=== PATIENT | female | born 1960 | race Caucasian/White ===

== ENCOUNTER 2016-08-10 19:38 | Observation (INO) | payer OTHER ==
[~2016-08-10] VITALS: Ht 162.6 cm; Wt 66.4 kg
[~2016-08-10 19:38] MED LIST: ALTACE10 M1 PO; ALTACE10 MG PO; ALTACE5 M1 PO; AMOXICILLIN/CL875 MG OR; AUGMENTIN500TAB PO; AUGMENTIN875TAB OR; BAYER ASPIRIN E81 MG PO; BENZONATATE200 MG PO; CYCLOBENZAPR5 MG PO; FLEXERIL PO; FLEXERIL5 M1 PO; HYDROCHLOROT12.5 MG PO; HYDROCHLOROT25 MG PO; KEPPRA XR500 MG PO; LAMICTAL25 M2 PO; LIPITOR80 M1 PO; LORAZEPAM0.5 MG PO; LORTAB 5/3255 MG PO; MEDDOSEPAK PO; MET12.5TAB PO; METOPROL TAR25 M1 PO; NAPROSYN500 MG PO; NEXIUM20 MG OR; NEXIUM40 M1 PO; PERCOCET 5/325M1 TAB PO; PRILOSEC20 MG/CAP PO; TESSALON PER100 MG PO; TRIBENZO1; TYLENOL 500MG TAB PO; ULTRAM50 MG OR; VALTREX1 GM PO; ZOFRAN ODT4 MG PO; ZOVIRAX51 EX
[2016-08-10] MEDS ORDERED: REGLAN10 MG PO (20:09)
[2016-08-10] MEDS ORDERED: ATIVAN0.5 MG PO (20:12)
[2016-08-10 21:16] LABS: URINE BILIRUBIN - DIPSTICK NEGATIVE (NEGATIVE); URINE BLOOD DIPSTICK NEGATIVE (NEGATIVE); URINE COLOR YELLOW; URINE GLUCOSE - DIPSTICK NEGATIVE (NEGATIVE); URINE KETONE NEGATIVE (NEGATIVE); URINE NITRITE - DIPSTICK NEGATIVE (Negative); URINE PH 5.5 (4.5-8.0); URINE PROTEIN - DIPSTICK NEGATIVE (NEG-TRACE); URINE UROBILINOGEN - DIPSTICK 0.2 E.U./dL (0.2)
[2016-08-10 21:21] LABS: HEMATOCRIT 42.3 % (37.0-47.0); IMMATURE GRANULOCYTES 0.2 % (0.0-1.0); MEAN CELL VOLUME 93.4 fL CALC (80.0-100.0); MEAN CORPUSCULAR HGB 30.9 pG CALC (26.0-32.0); MEAN CORPUSCULAR HGB CONC 33.1 g/L CALC (32.0-36.0); NEUT# 4.12 thou/uL (2.00-7.15); RED BLOOD COUNT 4.53 mill/uL (4.20-5.60); RED CELL DISTRI WIDTH 13.2 % (11.5-15.5)
[2016-08-10 21:27] LABS: URINE CLARITY TURBID; URINE LEUK ESTERASE LARGE (NEGATIVE)
[2016-08-10 21:30] LABS: URINE BACTERIA FEW hpf; URINE SQUAMOUS EPITHELIAL CELL FEW EPI/hpf (0-FEW); URINE WBC 50-100 WBC/hpf (0-5)
[2016-08-10 21:32] LABS: BARBITURATES NEGATIVE (NEGATIVE); COCAINE NEGATIVE (NEGATIVE); METHADONE NEGATIVE (NEGATIVE); TETRAHYDROCANNABIONOL NEGATIVE (NEGATIVE); TRICYLIC ANTIDEPRESSANTS NEGATIVE (NEGATIVE)
[2016-08-10 21:33] LABS: OXCYCODONE NEGATIVE (NEGATIVE)
[2016-08-10 22:23] LABS: ACT PARTIAL THROMBO TIME 26.8 SECONDS (20.0-32.5); ALBUMIN 4.3 g/dL (3.2-5.0); ALKALINE PHOSPHATASE 93 u/l (38-126); AMYLASE 62 u/l (30-110); ANION GAP 17 (6-22 (CALC)); BILIRUBIN, TOTAL 0.4 mg/dL (0.0-1.4); BUN 10 mg/dL (7-17); BUN/CREATININE RATIO 13 (12-20 (CALC)); CALCIUM 9.6 mg/dL (8.4-10.2); CARBON DIOXIDE 24 mmol/l (22-30); CHLORIDE 104 mmol/l (95-108); CREATININE 0.8 mg/dL (0.5-1.0); GFR > 60 ML/MIN (>=60 (CALC)); GFR FOR AFR.AMER. > 60 ML/MIN (>=60 (CALC)); GLUCOSE 89 mg/dL (65-105); LIPASE 205 u/l (23-300); POTASSIUM 3.9 mmol/l (3.5-5.1); SGOT/AST 27 u/l (14-36); SGPT/ALT 37 u/l (9-52); SODIUM 141 mmol/l (137-146); TOTAL PROTEIN 7.2 g/dL (6.3-8.2)
[2016-08-10 22:34] LABS: MYOGLOBIN 25 ng/mL (0 - 62)
[2016-08-11 01:07] LABS: INFLUENZA A NONE DETECTED (NONE DETECT); INFLUENZA B NONE DETECTED (NONE DETECT)
[2016-08-11 03:30] VITALS: BP 135/87
[2016-08-11 04:27] VITALS: BP 135/78
[2016-08-11 07:26] VITALS: BP 119/69
[2016-08-11 11:04] VITALS: BP 139/84
[2016-08-11] MEDS ORDERED: ROBITUSSIN200 MG/10 PO (11:22)
[2016-08-11] MEDS ORDERED: AUGMENTIN875TAB PO (11:22)
== END 2016-08-11 12:00 | disposition home or self-care (01) | DRG 153 ==
LOC: ENPENDDIS → ED 19:38 → ED-I 08-11 00:30 → ED 08-11 02:52 → MS2 08-11 02:53
PROVIDERS: Emergency Medicine; ADMIT Internal Medicine; ATTEND Internal Medicine
DX: J02.0 Streptococcal pharyngitis (principal); I10 Essential (primary) hypertension; R07.89 Other chest pain; E78.5 Hyperlipidemia, unspecified; I25.10 Atherosclerotic heart disease of native coronary artery without angina pectoris; I25.2 Old myocardial infarction; Z95.5 Presence of coronary angioplasty implant and graft
CPT/HCPCS: G0378

== ENCOUNTER 2018-03-25 06:02 | Day surgery (SDC) | payer OTHER ==
[~2018-03-25] VITALS: Ht 162.6 cm; Wt 67.6 kg
[~2018-03-25 06:02] MED LIST changes: +ALEVE220 M1 PO; +ATIVAN0.5 MG PO; +AUGMENTIN875TAB PO; +REGLAN10 MG PO; +ROBITUSSIN200 MG/10 PO; +TIZANIDINE HCL4 M1 PO
[2018-03-25 11:46] VITALS: BP 125/56
== END 2018-03-25 08:04 | disposition home or self-care (01) | DRG 552 ==
LOC: ORM 06:02
PROVIDERS: ATTEND Anesthesiology Pain Medicine
PROC: 3E0T3BZ Introduction of Anesthetic Agent into Peripheral Nerves and Plexi, Percutaneous Approach (ICD-10-PCS; principal; 2018-03-25)
PROC: 3E0T33Z Introduction of Anti-inflammatory into Peripheral Nerves and Plexi, Percutaneous Approach (ICD-10-PCS; 2018-03-25)
PROC: 3E0T3BZ Introduction of Anesthetic Agent into Peripheral Nerves and Plexi, Percutaneous Approach (ICD-10-PCS; 2018-03-25)
PROC: 3E0T33Z Introduction of Anti-inflammatory into Peripheral Nerves and Plexi, Percutaneous Approach (ICD-10-PCS; 2018-03-25)
DX: M54.5 Low back pain (principal); M46.1 Sacroiliitis, not elsewhere classified; M47.817 Spondylosis without myelopathy or radiculopathy, lumbosacral region; M79.604 Pain in right leg

== ENCOUNTER 2018-04-22 06:46 | Day surgery (SDC) | payer OTHER ==
[~2018-04-22] VITALS: Ht 162.6 cm; Wt 67.6 kg
[~2018-04-22 06:46] MED LIST changes: +NEXIUM 24HR20 MG
[2018-04-22 08:29] VITALS: BP 137/76
== END 2018-04-22 08:45 | disposition home or self-care (01) | DRG 951 ==
LOC: ENDO 06:46
PROVIDERS: ATTEND Surgery
PROC: 0DJD8ZZ Inspection of Lower Intestinal Tract, Via Natural or Artificial Opening Endoscopic (ICD-10-PCS; principal; 2018-04-22)
DX: Z12.11 Encounter for screening for malignant neoplasm of colon (principal)

== ENCOUNTER 2018-05-13 07:30 | Day surgery (SDC) | payer OTHER ==
[2018-05-13 10:05] VITALS: BP 123/78
== END 2018-05-13 10:24 | disposition home or self-care (01) | DRG 552 ==
LOC: ORM 07:30
PROVIDERS: ATTEND Anesthesiology Pain Medicine
PROC: 3E0T3BZ Introduction of Anesthetic Agent into Peripheral Nerves and Plexi, Percutaneous Approach (ICD-10-PCS; principal; 2018-05-13)
PROC: 3E0T33Z Introduction of Anti-inflammatory into Peripheral Nerves and Plexi, Percutaneous Approach (ICD-10-PCS; 2018-05-13)
PROC: BR161ZZ Fluoroscopy of Lumbar Facet Joint(s) using Low Osmolar Contrast (ICD-10-PCS; 2018-05-13)
PROC: 3E0T3BZ Introduction of Anesthetic Agent into Peripheral Nerves and Plexi, Percutaneous Approach (ICD-10-PCS; 2018-05-13)
PROC: 3E0T3BZ Introduction of Anesthetic Agent into Peripheral Nerves and Plexi, Percutaneous Approach (ICD-10-PCS; 2018-05-13)
PROC: 3E0T33Z Introduction of Anti-inflammatory into Peripheral Nerves and Plexi, Percutaneous Approach (ICD-10-PCS; 2018-05-13)
PROC: 3E0T33Z Introduction of Anti-inflammatory into Peripheral Nerves and Plexi, Percutaneous Approach (ICD-10-PCS; 2018-05-13)
PROC: BR161ZZ Fluoroscopy of Lumbar Facet Joint(s) using Low Osmolar Contrast (ICD-10-PCS; 2018-05-13)
PROC: BR161ZZ Fluoroscopy of Lumbar Facet Joint(s) using Low Osmolar Contrast (ICD-10-PCS; 2018-05-13)
DX: M54.5 Low back pain (principal); M46.1 Sacroiliitis, not elsewhere classified

== ENCOUNTER → 2018-06-02 | Outpatient (REF) | payer OTHER ==
[2018-06-02 14:16] LABS: HEMOGLOBIN 13.4 g/dl (12.0-16.0); IMMATURE GRANULOCYTES 0.3 % (0.0-5.0); MEAN CELL VOLUME 95.6 fL CALC (80.0-100.0); MEAN CORPUSCULAR HGB 31.2 pG CALC (26.0-32.0); MEAN CORPUSCULAR HGB CONC 32.7 g/L CALC (32.0-36.0); NEUT# 3.32 thou/uL (2.00-7.15); RED BLOOD COUNT 4.29 mill/uL (4.20-5.60); RED CELL DISTRI WIDTH 13.8 % (11.5-15.5)
[2018-06-02 15:22] LABS: ALBUMIN 5.2 g/dL (3.2-5.0); ALKALINE PHOSPHATASE 99 u/l (38-126); ANION GAP 18 (6-22 (CALC)); BILIRUBIN, TOTAL 0.7 mg/dL (0.0-1.4); BUN 17 mg/dL (7-17); BUN/CREATININE RATIO 21 (12-20 (CALC)); CALCULATED LDLCHOLESTEROL 166 mg/dL (62-129 (CALC)); CARBON DIOXIDE 27 mmol/l (22-30); CHLORIDE 102 mmol/l (95-108); CHOLESTEROL HDL RATIO 3.3 (<4.4 (CALC)); CREATININE 0.8 mg/dL (0.5-1.0); GFR > 60 ML/MIN (>=60 (CALC)); GFR FOR AFR.AMER. > 60 ML/MIN (>=60 (CALC)); HDL CHOLESTEROL 82 mg/dL (>=40); POTASSIUM 4.4 mmol/l (3.5-5.1); SGOT/AST 35 u/l (14-36); SODIUM 142 mmol/l (137-146); TOTAL CHOLESTEROL 272 mg/dl (0-199); TOTAL PROTEIN 8.3 g/dL (6.3-8.2); TRIGLYCERIDES REFLEX TO dLDL 121 mg/dl (30-149); VLDL CHOLESTROL 24 mg/dl (2-49 (CALC))
[2018-06-02 15:52] LABS: TSH, 3RD GENERATION 0.17 uIU/mL (0.47 - 4.68)
== END | disposition home or self-care (01) | DRG 951 ==
LOC: LAB 13:56
PROVIDERS: ATTEND Family Medicine
DX: Z00.00 Encounter for general adult medical examination without abnormal findings (principal); I10 Essential (primary) hypertension

== ENCOUNTER 2018-06-03 07:34 | Day surgery (SDC) | payer OTHER ==
[~2018-06-03] VITALS: Ht 162.6 cm; Wt 67.1 kg
[2018-06-03 09:06] VITALS: BP 120/64
== END 2018-06-03 09:30 | disposition home or self-care (01) | DRG 552 ==
LOC: ORM 07:34
PROVIDERS: ATTEND Anesthesiology Pain Medicine
PROC: 015B3ZZ Destruction of Lumbar Nerve, Percutaneous Approach (ICD-10-PCS; principal; 2018-06-03)
DX: M54.5 Low back pain (principal); M47.816 Spondylosis without myelopathy or radiculopathy, lumbar region

== ENCOUNTER → 2018-06-10 | Outpatient (REF) ==
[2018-06-10 12:19] LABS: CHOLESTEROL HDL RATIO 3.5 (<4.4 (CALC))
== END | disposition home or self-care (01) | DRG 951 ==
LOC: LAB 10:27
PROVIDERS: ATTEND Family Medicine
DX: Z02.6 Encounter for examination for insurance purposes (principal)

== ENCOUNTER 2019-01-03 18:06 | Emergency (ER) | payer OTHER ==
[~2019-01-03] VITALS: Ht 162.6 cm; Wt 67.0 kg
[~2019-01-03 18:06] MED LIST changes: +TRAMADOL HCL50 MG PO
[2019-01-03] MEDS ORDERED: ROSUVASTATIN CA10 MG PO (19:00)
[2019-01-03 19:24] LABS: HEMATOCRIT 37.8 % (37.0-47.0); HEMOGLOBIN 12.5 g/dl (12.0-16.0); IMMATURE GRANULOCYTES 0.2 % (0.0-5.0); MEAN CELL VOLUME 92.2 fL CALC (80.0-100.0); MEAN CORPUSCULAR HGB 30.5 pG CALC (26.0-32.0); MEAN CORPUSCULAR HGB CONC 33.1 g/L CALC (32.0-36.0); NEUT# 4.2 thou/uL (2.00-7.15); RED BLOOD COUNT 4.1 mill/uL (4.20-5.60); RED CELL DISTRI WIDTH 13.5 % (11.5-15.5)
[2019-01-03 19:25] LABS: URINE BILIRUBIN - DIPSTICK NEGATIVE (NEGATIVE); URINE BLOOD DIPSTICK NEGATIVE (NEGATIVE); URINE COLOR YELLOW; URINE GLUCOSE - DIPSTICK NEGATIVE (NEGATIVE); URINE KETONE NEGATIVE (NEGATIVE); URINE NITRITE - DIPSTICK NEGATIVE (Negative); URINE PROTEIN - DIPSTICK NEGATIVE (NEG-TRACE); URINE SPECIFIC GRAVITY 1.025; URINE UROBILINOGEN - DIPSTICK 0.2 E.U./dL (0.2)
[2019-01-03 19:26] LABS: URINE LEUK ESTERASE MODERATE (NEGATIVE)
[2019-01-03 19:37] LABS: URINE SQUAMOUS EPITHELIAL CELL FEW EPI/hpf (0-FEW)
[2019-01-03 19:47] LABS: ALBUMIN 4.9 g/dL (3.2-5.0); ALKALINE PHOSPHATASE 97 u/l (38-126); ANION GAP 15 (6-22 (CALC)); BILIRUBIN, TOTAL 0.4 mg/dL (0.0-1.4); BUN 16 mg/dL (7-17); BUN/CREATININE RATIO 19 (12-20 (CALC)); CARBON DIOXIDE 26 mmol/l (22-30); CHLORIDE 104 mmol/l (95-108); CREATININE 0.8 mg/dL (0.5-1.0); GFR > 60 ML/MIN (>=60 (CALC)); GFR FOR AFR.AMER. > 60 ML/MIN (>=60 (CALC)); POTASSIUM 3.7 mmol/l (3.5-5.1); SGOT/AST 32 u/l (14-36); SODIUM 141 mmol/l (137-146); TOTAL PROTEIN 7.9 g/dL (6.3-8.2)
[2019-01-03] MEDS ORDERED: KEFLEX500 M1 PO (19:58)
[2019-01-03 20:11] VITALS: BP 154/86
== END 2019-01-03 20:15 | disposition home or self-care (01) | DRG 690 ==
LOC: ED 18:06
DX: N39.0 Urinary tract infection, site not specified (principal); I10 Essential (primary) hypertension; G40.909 Epilepsy, unspecified, not intractable, without status epilepticus

== ENCOUNTER 2019-09-09 22:34 | Emergency (ER) | payer OTHER ==
[~2019-09-09 22:34] MED LIST changes: +KEFLEX500 M1 PO; +ROSUVASTATIN CA10 MG PO
[2019-09-09 23:12] LABS: HEMATOCRIT 42.7 % (37.0-47.0); HEMOGLOBIN 14.2 g/dl (12.0-16.0); IMMATURE GRANULOCYTES 0.3 % (0.0-5.0); MEAN CELL VOLUME 92.4 fL CALC (80.0-100.0); MEAN CORPUSCULAR HGB 30.7 pG CALC (26.0-32.0); MEAN CORPUSCULAR HGB CONC 33.3 g/dL CAL (32.0-36.0); NEUT# 5.29 thou/uL (2.00-7.15); RED BLOOD COUNT 4.62 mill/uL (4.20-5.60); RED CELL DISTRI WIDTH 13.3 % (11.5-15.5)
[2019-09-09 23:24] LABS: ALKALINE PHOSPHATASE 117 u/l (38-126); ANION GAP 15 (6-22 (CALC)); BILIRUBIN, TOTAL 0.4 mg/dL (0.0-1.4); BUN 13 mg/dL (7-17); BUN/CREATININE RATIO 15 (12-20 (CALC)); CARBON DIOXIDE 27 mmol/l (22-30); CHLORIDE 104 mmol/l (95-108); CREATININE 0.9 mg/dL (0.5-1.0); GFR > 60 ML/MIN (>=60 (CALC)); GFR FOR AFR.AMER. > 60 ML/MIN (>=60 (CALC)); POTASSIUM 3.8 mmol/l (3.5-5.1); SODIUM 142 mmol/l (137-146); TOTAL PROTEIN 8.5 g/dL (6.3-8.2)
[2019-09-09 23:25] LABS: SGOT/AST 77 u/l (14-36)
[2019-09-09 23:36] LABS: MYOGLOBIN 36 ng/mL (0 - 62)
[2019-09-09 23:45] LABS: URINE BILIRUBIN - DIPSTICK NEGATIVE (NEGATIVE); URINE BLOOD DIPSTICK NEGATIVE (NEGATIVE); URINE COLOR YELLOW; URINE GLUCOSE - DIPSTICK NEGATIVE (NEGATIVE); URINE KETONE NEGATIVE (NEGATIVE); URINE LEUK ESTERASE NEGATIVE (NEGATIVE); URINE NITRITE - DIPSTICK NEGATIVE (Negative); URINE PH 7.5 (4.5-8.0); URINE PROTEIN - DIPSTICK NEGATIVE (NEG-TRACE); URINE SPECIFIC GRAVITY <=1.005; URINE UROBILINOGEN - DIPSTICK 0.2 E.U./dL (0.2)
[2019-09-09 23:56] LABS: TSH, 3RD GENERATION 4.02 uIU/mL (0.47 - 4.68)
[2019-09-10 02:39] VITALS: BP 125/80
== END 2019-09-10 02:39 | disposition home or self-care (01) | DRG 310 ==
LOC: ED 22:34
PROVIDERS: Emergency Medicine
DX: R00.2 Palpitations (principal); I10 Essential (primary) hypertension; G40.909 Epilepsy, unspecified, not intractable, without status epilepticus
CPT/HCPCS: J0153

== ENCOUNTER 2021-05-25 16:16 | Emergency (ER) | payer OTHER ==
[~2021-05-25] VITALS: Ht 162.6 cm; Wt 65.0 kg
[2021-05-25] MEDS ORDERED: ATENOLOL25 MG PO (18:00)
[2021-05-25] MEDS ORDERED: CRESTOR40 MG PO (18:03)
[2021-05-25 18:25] LABS: URINE BILIRUBIN - DIPSTICK NEGATIVE (NEGATIVE); URINE BLOOD DIPSTICK NEGATIVE (NEGATIVE); URINE COLOR YELLOW; URINE GLUCOSE - DIPSTICK NEGATIVE (NEGATIVE); URINE KETONE NEGATIVE (NEGATIVE); URINE LEUK ESTERASE NEGATIVE (NEGATIVE); URINE NITRITE - DIPSTICK NEGATIVE (Negative); URINE PH 5.5 (4.5-8.0); URINE PROTEIN - DIPSTICK NEGATIVE (NEG-TRACE); URINE UROBILINOGEN - DIPSTICK 0.2 E.U./dL (0.2)
[2021-05-25 18:27] LABS: HEMATOCRIT 41.9 % (37.0-47.0); HEMOGLOBIN 13.8 g/dl (12.0-16.0); IMMATURE GRANULOCYTES 0.2 % (0.0-5.0); MEAN CELL VOLUME 94.6 fL CALC (80.0-100.0); MEAN CORPUSCULAR HGB 31.2 pG CALC (26.0-32.0); MEAN CORPUSCULAR HGB CONC 32.9 g/dL CAL (32.0-36.0); NEUT# 6.06 thou/uL (2.00-7.15); RED BLOOD COUNT 4.43 mill/uL (4.20-5.60)
[2021-05-25 18:45] LABS: ALBUMIN 4.8 g/dL (3.2-5.0); ALKALINE PHOSPHATASE 112 u/l (38-126); ANION GAP 18 (6-22 (CALC)); BILIRUBIN, TOTAL 0.3 mg/dL (0.0-1.4); BUN 12 mg/dL (7-17); BUN/CREATININE RATIO 16 (12-20 (CALC)); CARBON DIOXIDE 22 mmol/l (22-30); CHLORIDE 104 mmol/l (95-108); CREATININE 0.8 mg/dL (0.5-1.0); GFR > 60 ML/MIN (>=60 (CALC)); GFR FOR AFR.AMER. > 60 ML/MIN (>=60 (CALC)); POTASSIUM 4.3 mmol/l (3.5-5.1); SGOT/AST 44 u/l (14-36); SODIUM 140 mmol/l (137-146)
[2021-05-25] MEDS ORDERED: LORTAB 1010 MG PO (21:53)
[2021-05-25 21:58] VITALS: BP 160/87
== END 2021-05-25 22:06 | disposition home or self-care (01) | DRG 552 ==
LOC: ED 16:16
PROVIDERS: Family Medicine
DX: M47.816 Spondylosis without myelopathy or radiculopathy, lumbar region (principal); I12.9 Hypertensive chronic kidney disease with stage 1 through stage 4 chronic kidney disease, or unspecified chronic kidney disease; N18.9 Chronic kidney disease, unspecified; K58.9 Irritable bowel syndrome, unspecified; I25.10 Atherosclerotic heart disease of native coronary artery without angina pectoris; G40.909 Epilepsy, unspecified, not intractable, without status epilepticus

== ENCOUNTER 2021-12-23 11:27 | Emergency (ER) | payer OTHER ==
[~2021-12-23] VITALS: Ht 162.6 cm; Wt 67.2 kg
[~2021-12-23 11:27] MED LIST changes: +ATENOLOL25 MG PO; +CRESTOR40 MG PO; +LORTAB 1010 MG PO
[2021-12-23 11:31] VITALS: BP 172/79
[2021-12-23 11:45] VITALS: BP 149/81
[2021-12-23 12:00] VITALS: BP 119/72
[2021-12-23 12:15] VITALS: BP 129/72
[2021-12-23 12:21] VITALS: BP 129/72
[2021-12-23] MEDS ORDERED: TAM75CAP PO (12:24)
== END 2021-12-23 12:31 | disposition home or self-care (01) | DRG 153 ==
LOC: ED 11:27
DX: J11.1 Influenza due to unidentified influenza virus with other respiratory manifestations (principal); I10 Essential (primary) hypertension; G40.909 Epilepsy, unspecified, not intractable, without status epilepticus; E78.00 Pure hypercholesterolemia, unspecified; Z20.822 Contact with and (suspected) exposure to COVID-19

== ENCOUNTER 2022-04-14 11:08 | Emergency (ER) | payer OTHER ==
[~2022-04-14] VITALS: Ht 162.6 cm; Wt 68.2 kg
[~2022-04-14 11:08] MED LIST changes: +TAM75CAP PO
[2022-04-14 11:37] VITALS: BP 168/90
[2022-04-14 11:45] VITALS: BP 168/88
[2022-04-14 12:01] VITALS: BP 149/77
[2022-04-14 12:15] VITALS: BP 151/82
[2022-04-14] MEDS ORDERED: FLEXERIL5 M1 PO (13:12)
[2022-04-14] MEDS ORDERED: PREDNISONE50 MG PO (13:12)
[2022-04-14] MEDS ORDERED: TORADOL PO (13:12)
[2022-04-14 13:38] VITALS: BP 151/82
== END 2022-04-14 13:49 | disposition home or self-care (01) | DRG 563 ==
LOC: ED 11:08
DX: S39.012A Strain of muscle, fascia and tendon of lower back, initial encounter (principal); X50.1XXA Overexertion from prolonged static or awkward postures, initial encounter